=== PATIENT | male | born 1950 | race African-American/Black ===

== ENCOUNTER 2019-05-25 02:07 | Emergency (ER) | payer MEDICARE ==
[~2019-05-25] VITALS: Ht 188 cm; Wt 137.9 kg
[2019-05-25] MEDS ORDERED: CLONIDINE HCL 0.1 MG TAB PO ONE (02:30)
== END 2019-05-25 03:02 | disposition home or self-care (01) ==
LOC: FSED 02:07
DX: I10 Essential (primary) hypertension (principal); R42 Dizziness and giddiness; Z88.8 Allergy status to other drugs, medicaments and biological substances; Z95.5 Presence of coronary angioplasty implant and graft; E11.9 Type 2 diabetes mellitus without complications
CPT/HCPCS: 80053; 82553; 83880; 84484; 85025; 93005; 99283